=== PATIENT | female | born 1995 | race Caucasian/White ===

== ENCOUNTER 2017-02-23 15:42 | Emergency (ER) | payer OTHER ==
[2017-02-23] MEDS ORDERED: ONDANSETRON 4 MG/2 ML VIAL ONE (16:23)
--- NOTE | 2017-02-23 16:29 | EDPHY ---
H & P Smoking Status: Never smoked Time Seen by Provider: 02/23/17 15:58 HPI/ROS: CHIEF COMPLAINT: Short of breath, dizzy, nausea HISTORY OF PRESENT ILLNESS: 21-year-old female presents to the emergency department by private vehicle with her feeling short of breath. The patient is visiting from [place] and feels very short of breath. The patient states that she drove 11 hours in the car over the weekend arrived in [place] on Tuesday afternoon. They spent the night in [place] on Tuesday evening. On Tuesday they drove up to [place]. They did some hiking around [place] and she developed headache and was feeling the "drunk ". She has no chest pain. She was having some mild difficulty breathing. They drove down to [place] last night and states the night there and she was still feeling short of breath. She was supposed to drive to [place] today, however because she continued to feel short of breath she came to the hospital in [place] for evaluation. She denies pleuritic chest pain. She denies any chest pain per se. No fevers or chills. No calf pain or swelling. She states that she has been drinking a large amount of water and she thinks that may also be what was making her feel nauseous. She has been urinating normally. She does not think that she is . Denies abdominal pain. REVIEW OF SYSTEMS: Constitutional: No fever, no chills. Eyes: No double or blurry vision. ENT: No sore throat. Respiratory: shortness of breath. No cough Cardiac: No chest pain. Gastrointestinal: No abdominal pain, vomiting or diarrhea. Genitourinary: No dysuria. Musculoskeletal: No neck or back pain. Skin: No rashes. Neurological: No headache. (Aleyda Rubia Oscar) Past Medical/Surgical History: Negative (Dali Rubirina Oscar) Social History: from [place] (Aleyda Rubia Oscar) Physical Exam: General Appearance: Alert, no distress. Vital signs are stable. at bedside. Eyes: Pupils equal and round. Extraocular motions are all intact. ENT: Mouth: Mucous membranes moist. Respiratory: No wheezing, rhonchi, or rales, lungs are clear to auscultation. Cardiovascular: Regular rate and rhythm. Gastrointestinal: Abdomen is soft and nontender, no masses, no rebound or guarding, bowel sounds normal. Neurological: Alert and oriented x 3, cranial nerves II through XII grossly intact Skin: Warm and dry, no rashes. Musculoskeletal: Nontender to palpate along the cervical, thoracic or lumbar spine. Neck is supple. Extremities: Full range of motion and no peripheral edema. Psychiatric: Patient is oriented X 3, there is no agitation. (Kim Rubi) Constitutional: Initial Vital Signs Temperature (C) 37.1 C 02/23/17 15:46 Heart Rate 92 02/23/17 15:46 Respiratory Rate 18 02/23/17 15:46 Blood Pressure 107/67 02/23/17 15:46 O2 Sat (%) 98 02/23/17 15:46 O2 Delivery Mode Room Air O2 (L/minute) 2 Allergies/Adverse Reactions: tramadol Allergy (Unknown, Verified 02/23/17 15:46) as a kid Home Medications: Medication Instructions Recorded NK [No Known Home Meds] 02/23/17 Medical Decision Making - Diagnostics Imaging: I viewed and interpreted images myself - Diagnostics Imaging Results: Imaging Impressions Chest X-Ray 02/23/17 16:42 Impression: Normal. ED Course/Re-evaluation: 21-year-old female presents feeling short of breath and dizzy. The patient is concerned about altitude sickness. Laboratory studies were all within normal limits. EKG was normal. Chest x-ray was unremarkable. She was 99-100% on room air. The patient received IV normal saline. She was feeling better. She was also placed on nasal cannula oxygen. We discussed the possibilities of acute mountain sickness verses possible high altitude pulmonary edema, versus possible high altitude cerebral edema. The patient has a normal neurologic examination. She does not have a headache. Chest x-ray was normal. The case was discussed with Dr. Mario Lisa, secondary supervising physician, who did not directly evaluate the patient but agrees with treatment and plan. The patient was planning on going up to [place], however I discouraged her from that and encouraged her to stay in [place] and did not do any exertional activities. She will return if she develops headache, shortness of breath, or if she feels worse in any way. (Dali Rubirina Oscar) Differential Diagnosis: Shortness of breath including but not limited to pulmonary infectious process, COPD, asthma, pulmonary embolus and congestive heart failure. (Kim Rubi) - Data Points Laboratory Results: Laboratory Results 02/23/17 16:30 02/23/17 16:30 02/23/17 02/23/17 02/23/17 16:30 16:30 16:30 WBC RBC Hgb Hct MCV MCH MCHC RDW Plt Count MPV Neut % (Auto) Lymph % (Auto) [place] % (Auto) Eos % (Auto) Baso % (Auto) Nucleat RBC Rel Count Absolute Neuts (auto) Absolute Lymphs (auto) Absolute Monos (auto) Absolute Eos (auto) Absolute Basos (auto) Absolute Nucleated RBC Immature Gran % Immature Gran # D-Dimer < 0.27 ug/mLFEU ug/mLFEU (0.00-0.50) Sodium 141 mEq/L mEq/L (134-144) Potassium 3.9 mEq/L mEq/L (3.5-5.2) Chloride 105 mEq/L mEq/L (97-110) Carbon Dioxide 22 mEq/l mEq/l (22-31) Anion Gap 14 mEq/L mEq/L (8-16) BUN 16 mg/dL mg/dL (7-23) Creatinine 0.8 mg/dL mg/dL (0.6-1.0) Estimated GFR > 60 Glucose 79 mg/dL mg/dL (70-100) Calcium 9.8 mg/dL mg/dL (8.5-10.4) Beta HCG, Qual NEGATIVE 02/23/17 16:30 WBC 7.92 10^3/uL 10^3/uL (3.80-9.50) RBC 4.79 10^6/uL 10^6/uL (4.18-5.33) Hgb 14.1 g/dL g/dL (12.6-16.3) Hct 41.4 % % (38.0-47.0) MCV 86.4 fL fL (81.5-99.8) MCH 29.4 pg pg (27.9-34.1) MCHC 34.1 g/dL g/dL (32.4-36.7) RDW 13.0 % % (11.5-15.2) Plt Count 262 10^3/uL 10^3/uL (150-400) MPV 9.5 fL fL (8.7-11.7) Neut % (Auto) 61.1 % % (39.3-74.2) Lymph % (Auto) 27.4 % % (15.0-45.0) [place] % (Auto) 8.1 % % (4.5-13.0) Eos % (Auto) 2.3 % % (0.6-7.6) Baso % (Auto) 0.8 % % (0.3-1.7) Nucleat RBC Rel Count 0.0 % % (0.0-0.2) Absolute Neuts (auto) 4.85 10^3/uL 10^3/uL (1.70-6.50) Absolute Lymphs (auto) 2.17 10^3/uL 10^3/uL (1.00-3.00) Absolute Monos (auto) 0.64 10^3/uL 10^3/uL (0.30-0.80) Absolute Eos (auto) 0.18 10^3/uL 10^3/uL (0.03-0.40) Absolute Basos (auto) 0.06 10^3/uL 10^3/uL (0.02-0.10) Absolute Nucleated RBC 0.00 10^3/uL 10^3/uL (0-0.01) Immature Gran % 0.3 % % (0.0-1.1) Immature Gran # 0.02 10^3/uL 10^3/uL (0.00-0.10) D-Dimer Sodium Potassium Chloride Carbon Dioxide Anion Gap BUN Creatinine Estimated GFR Glucose Calcium Beta HCG, Qual Medications Given: Discontinued Medications Sodium Chloride (Ns) 1,000 mls @ 0 mls/hr IV ONCE ONE PRN Reason: Wide Open Stop: 02/23/17 16:38 Last Admin: 02/23/17 16:43 Dose: 1,000 mls Sodium Chloride (Ns) 1,000 mls @ 0 mls/hr IV EDNOW ONE; Wide Open PRN Reason: Protocol Stop: 02/23/17 17:49 Last Admin: 02/23/17 17:48 Dose: 1,000 mls Ondansetron HCl (Zofran) 4 mg IVP EDNOW ONE Stop: 02/23/17 16:38 Last Admin: 02/23/17 16:43 Dose: 4 mg Departure - Departure Disposition: Home, Routine, Self-Care Clinical Impression: Dyspnea Qualifiers: Dyspnea type: unspecified Qualified Code(s): R06.00 - Dyspnea, unspecified Condition: Good Instructions: Dyspnea (ED) Additional Instructions: Return to the emergency department if you feel recurrent shortness of breath, if you develop pain in your chest, or if you feel worse in any way. You should not do any exertional activities until your symptoms have completely resolved. Referrals: Felisha Gan MD [Medical Doctor] - 1 day, if not improved (Primary care provider personnel technician)
[2017-02-23] MEDS ORDERED: ONDANSETRON 4 MG/2 ML VIAL IVP ONE (16:37)
[2017-02-23] MEDS ORDERED: NS 1,000 ML IV ONE ×2 (16:37→17:48)
[2017-02-23 16:51] LABS: % IMMATURE GRANULYOCYTES 0.3 % (0.0-1.1); ABSOLUTE IMMATURE GRANULOCYTES 0.02 10^3/uL (0.00-0.10); ADD DIFF? NO; ADD MORPH? NO; ADD SCAN? NO; ATYPICAL LYMPHOCYTE FLAG 20 (0-99); FRAGMENT RBC FLAG 0 (0-99); HEMATOCRIT 41.4 % (38.0-47.0); HEMOGLOBIN 14.1 g/dL (12.6-16.3); LEFT SHIFT FLG 0 (0-99); LIPEMIA HEMOLYSIS FLAG 90 (0-99); MEAN CELL HEMOGLOBIN 29.4 pg (27.9-34.1); MEAN CELL HEMOGLOBIN CONCENTR. 34.1 g/dL (32.4-36.7); MEAN CELL VOLUME 86.4 fL (81.5-99.8); MEAN PLATELET VOLUME 9.5 fL (8.7-11.7); PLATELET CLUMPS FLAG 0 (0-99); PLATELET COUNT 262 10^3/uL (150-400); RED BLOOD CELL COUNT 4.79 10^6/uL (4.18-5.33)
[2017-02-23 17:08] LABS: ANION GAP 14 mEq/L (8-16); CALCIUM 9.8 mg/dL (8.5-10.4); CARBON DIOXIDE 22 mEq/l (22-31); CHLORIDE 105 mEq/L (97-110); CREATININE 0.8 mg/dL (0.6-1.0); GLOMERULAR FILTRATION RATE > 60; GLUCOSE 79 mg/dL (70-100); POTASSIUM 3.9 mEq/L (3.5-5.2); SODIUM 141 mEq/L (134-144)
--- NOTE | 2017-02-23 17:12 | CPEKG ---
Heart Rate: 84 RR Interval: 714 P-R Interval: 168 QRSD Interval: 96 QT Interval: 396 QTC Interval: 469 P [place]: 51 QRS [place]: 73 T Wave [place]: 32 EKG Severity - NORMAL ECG - EKG Impression: SINUS RHYTHM Electronically Signed By: Mario Lisa 23-Feb-2017 17:23:25
[2017-02-23 19:02] VITALS: BP 102/74; PULSE 78; RESP 18; TEMP 97.9; O2SAT 98
== END 2017-02-23 19:02 | disposition home or self-care (01) ==
DX: R06.00 Dyspnea, unspecified (principal); E86.9 Volume depletion, unspecified
CPT/HCPCS: 96374; J2405